=== PATIENT | female | born 1970 | race Caucasian/White ===

== ENCOUNTER 2017-01-01 07:54 | Emergency (ER) | payer OTHER ==
[~2017-01-01] VITALS: Ht 157.4 cm; Wt 99.8 kg
[~2017-01-01 07:54] MED LIST: AVELOX400 MG PO; DOXYCYCLINE MO100 MG PO; MEDROL DOSEPAK4 MG PO; MOTRIN800 MG PO; NKHM; PERCOCET 325 MG1 TA5 PO; PHENERGAN W/DM120 ML PO; PRENATAL1 TA1 PO
[2017-01-01 08:30] LABS: BILIRUBIN NEGATIVE (NEGATIVE); BLOOD 2+ (NEGATIVE); CLARITY SL CLOUDY (CLEAR); COLOR YELLOW (YELLOW); GLUCOSE NEGATIVE (NEGATIVE); KETONE NEGATIVE (NEGATIVE); LEUKO ESTERASE 1+ (NEGATIVE); NITRITE NEGATIVE (NEGATIVE); PH 5.5 (5.0-9.0); SPECIFIC GRAVITY 1.025 (1.005-1.030); UROBILINOGEN 0.2 E.U./dl (0.2-1.0)
[2017-01-01 08:44] LABS: BACTERIA 2+; MUCOUS 1+; WBC 31-40 wbc/hpf (0-5)
[2017-01-01] MEDS ORDERED: SEPTDS PO (08:49)
== END 2017-01-01 09:20 | disposition admitted as inpatient to this hospital (09) ==
LOC: ED 07:54
PROVIDERS: Emergency Medicine
DX: N39.0 Urinary tract infection, site not specified (principal); R31.9 Hematuria, unspecified; F17.200 Nicotine dependence, unspecified, uncomplicated

== ENCOUNTER → 2021-10-31 | Outpatient (CLI) | payer OTHER ==
[~2021-10-31] MED LIST changes: +SEPTDS PO
== END | disposition home or self-care (01) ==
LOC: RAD 09:16
PROVIDERS: ATTEND Nurse Practitioner Family
DX: M17.0 Bilateral primary osteoarthritis of knee (principal); M25.761 Osteophyte, right knee; M25.762 Osteophyte, left knee; M25.862 Other specified joint disorders, left knee; M25.861 Other specified joint disorders, right knee

== ENCOUNTER → 2021-11-07 | Outpatient (CLI) | payer OTHER ==
[2021-11-07 12:06] LABS: BASO % 0.4 % (0.0-1.0); EOS # 0.1 10*3/uL (0.0-0.4); EOS % 1.3 % (1.0-4.0); HEMATOCRIT 44.8 % (37.0-47.0); LYMPH # 2.4 10*3/uL (1.3-4.4); LYMPH % 27.8 % (27.0-41.0); MEAN CELL VOLUME 93.3 fl (81.0-99.0); MEAN CORPUSCULAR HGB 30.6 pg (27.0-31.0); MEAN CORPUSCULAR HGB CONC 32.8 g/dl (33.0-37.0); MEAN PLATELET VOLUME 9.8 fl (9.6-12.3); MONO # 0.7 10*3/uL (0.1-1.0); NEUT # 5.3 10*3/uL (2.3-7.9); PLATELET COUNT AUTOMATED 338 10*3/uL (130-400); RED CELL DISTRI WIDTH 12.9 % (0-14.5); WHITE BLOOD COUNT 8.5 10*3/uL (4.8-10.8)
[2021-11-07 12:29] LABS: ALKALINE PHOSPHATASE 75 U/L (45-117); BUN 11 mg/dl (7-24); CHLORIDE 106 mmol/L (98-107); CHOLESTEROL 195 mg/dL (<200); CREATININE 0.57 mg/dL (0.55-1.02); LDL CHOLESTEROL 105 mg/dL (9-159); POTASSIUM 4.4 mmol/L (3.5-5.1); SGOT/AST 14 IU/L (3-35); SGPT/ALT 20 U/L (12-78); SODIUM 138 mmol/L (136-145); TOTAL PROTEIN 7.2 gm/dL (6.4-8.2); TRIGLYCERIDES 142 mg/dl (<150)
[2021-11-08 04:06] LABS: RHEUMATOID FACTOR <10.0 IU/mL (<14.0)
== END | disposition home or self-care (01) ==
LOC: LAB 11:28
PROVIDERS: ATTEND Nurse Practitioner Family
DX: Z13.228 Encounter for screening for other metabolic disorders (principal); Z13.220 Encounter for screening for lipoid disorders; M25.50 Pain in unspecified joint

== ENCOUNTER → 2022-02-27 | Outpatient (CLI) | payer OTHER | END | disposition home or self-care (01) | LOC: ORTHO 02:41 | PROVIDERS: ATTEND Orthopaedic Surgery | DX: M17.0 Bilateral primary osteoarthritis of knee (principal); M25.761 Osteophyte, right knee; M25.762 Osteophyte, left knee; M25.862 Other specified joint disorders, left knee; M25.861 Other specified joint disorders, right knee; M19.042 Primary osteoarthritis, left hand ==

== ENCOUNTER → 2022-03-07 | Day surgery (SDC) | payer OTHER ==
[2022-03-06 10:58] LABS: BUN 13 mg/dl (9-23); CHLORIDE 105 mmol/L (98-107); CREATININE 0.57 mg/dL (0.55-1.02); POTASSIUM 3.8 mmol/L (3.4-5.1); SODIUM 140 mmol/L (136-145)
[~2022-03-07] VITALS: Ht 157.4 cm; Wt 96.2 kg
[2022-03-07 07:34] VITALS: BP 142/87
[2022-03-07 09:14] VITALS: BP 101/62
[2022-03-07 09:29] VITALS: BP 107/73
[2022-03-07 09:44] VITALS: BP 107/74
== END | disposition home or self-care (01) ==
LOC: SDC 03-04 11:45
PROVIDERS: ATTEND Orthopaedic Surgery
DX: R22.32 Localized swelling, mass and lump, left upper limb (principal); F41.9 Anxiety disorder, unspecified; F32.A Depression, unspecified; F17.210 Nicotine dependence, cigarettes, uncomplicated; M17.0 Bilateral primary osteoarthritis of knee

== ENCOUNTER → 2023-02-28 | Outpatient (CLI) | payer OTHER ==
[~2023-02-28] MED LIST changes: +ALEVE220 M1 PO; +MULTIPLE VITAM1 EAC1 PO
== END | disposition home or self-care (01) ==
LOC: RAD 15:06
PROVIDERS: ATTEND Family Medicine
DX: M48.07 Spinal stenosis, lumbosacral region (principal); M47.815 Spondylosis without myelopathy or radiculopathy, thoracolumbar region; M48.061 Spinal stenosis, lumbar region without neurogenic claudication

== ENCOUNTER → 2023-03-20 | Outpatient (CLI) | payer OTHER | END | disposition home or self-care (01) | LOC: MAMMO 09:46 → CT 11:00 | PROVIDERS: ATTEND Family Medicine | DX: Z12.31 Encounter for screening mammogram for malignant neoplasm of breast (principal); J43.9 Emphysema, unspecified; F17.210 Nicotine dependence, cigarettes, uncomplicated; I25.10 Atherosclerotic heart disease of native coronary artery without angina pectoris ==

== ENCOUNTER 2023-03-26 09:59 | Emergency (ER) | payer OTHER ==
[~2023-03-26] VITALS: Wt 93.0 kg
[2023-03-26] MEDS ORDERED: PREDNISONE50 MG PO (11:54)
== END 2023-03-26 12:13 | disposition home or self-care (01) ==
LOC: ED 09:59
DX: S46.911A Strain of unspecified muscle, fascia and tendon at shoulder and upper arm level, right arm, initial encounter (principal); Z98.890 Other specified postprocedural states; F17.210 Nicotine dependence, cigarettes, uncomplicated; X50.0XXA Overexertion from strenuous movement or load, initial encounter; Y93.89 Activity, other specified; Y92.89 Other specified places as the place of occurrence of the external cause; Y99.0 Civilian activity done for income or pay

== ENCOUNTER 2023-08-31 13:07 | Emergency (ER) | payer OTHER ==
[~2023-08-31] VITALS: Ht 157.4 cm; Wt 90.7 kg
[~2023-08-31 13:07] MED LIST changes: +PREDNISONE50 MG PO
[2023-08-31] MEDS ORDERED: Albuterol Sulf/Ipratropium 3 ML VIAL NEB ONE (13:45)
[2023-08-31] MEDS ORDERED: methylPREDNISolone sod succ 125 MG VIAL IM ONE (13:50)
[2023-08-31] MEDS ORDERED: PREDNISONE20 M1 PO (15:36)
== END 2023-08-31 15:43 | disposition home or self-care (01) ==
LOC: ED 13:07
DX: T59.4X1A Toxic effect of chlorine gas, accidental (unintentional), initial encounter (principal); R06.02 Shortness of breath; M19.90 Unspecified osteoarthritis, unspecified site; F17.210 Nicotine dependence, cigarettes, uncomplicated; Z98.890 Other specified postprocedural states; Y92.89 Other specified places as the place of occurrence of the external cause

== ENCOUNTER → 2023-12-31 | Outpatient (CLI) | payer OTHER ==
[~2023-12-31] MED LIST changes: +PREDNISONE20 M1 PO
== END | disposition home or self-care (01) ==
LOC: CARD 14:30
PROVIDERS: ATTEND Nurse Practitioner Psychiatric/Mental Health
DX: Z51.81 Encounter for therapeutic drug level monitoring (principal); Z79.01 Long term (current) use of anticoagulants

== ENCOUNTER → 2024-04-08 | Outpatient (CLI) | payer OTHER | END | disposition home or self-care (01) | LOC: CT 10:00 | PROVIDERS: ATTEND Internal Medicine Critical Care Medicine | DX: Z12.2 Encounter for screening for malignant neoplasm of respiratory organs (principal); J43.2 Centrilobular emphysema; R91.8 Other nonspecific abnormal finding of lung field; J84.10 Pulmonary fibrosis, unspecified; Z87.891 Personal history of nicotine dependence; Z68.36 Body mass index [BMI] 36.0-36.9, adult; I25.10 Atherosclerotic heart disease of native coronary artery without angina pectoris ==

== ENCOUNTER 2024-07-31 18:01 | Emergency (ER) | payer OTHER ==
[~2024-07-31] VITALS: Ht 157.4 cm; Wt 82.1 kg
[2024-07-31] MEDS ORDERED: Tdap Vaccine 0.5 ML SYR (Adult Vaccine) IM ONE (18:15)
[2024-07-31] MEDS ORDERED: AMOX-CLAV 875-1 EACH PO (18:53)
[2024-07-31] MEDS ORDERED: Amoxicillin/Clavulanate Pota 875 MG TAB PO ONE (18:55)
== END 2024-07-31 19:04 | disposition home or self-care (01) ==
LOC: ED 18:01
DX: S61.041A Puncture wound with foreign body of right thumb without damage to nail, initial encounter (principal); F17.210 Nicotine dependence, cigarettes, uncomplicated; Z79.899 Other long term (current) drug therapy; W22.8XXA Striking against or struck by other objects, initial encounter; Y93.89 Activity, other specified; Y92.89 Other specified places as the place of occurrence of the external cause; Y99.8 Other external cause status